=== PATIENT | female | born 1975 | race Caucasian/White ===

== ENCOUNTER 2018-10-30 01:10 | Inpatient (IN) ==
[2018-10-30 01:33] LABS: BE 11.5 mmoll (-3.0-3.0); BLOOD TYPE ARTERIAL; HCO3-(ACT) 33.7 mmoll (20.0-26.0); METHB 1.2 % (0.0-1.5); O2(CT) 17.2 mL/dL (15.0-23.0); PO2(98.6) 61 mmHg (60-100); SAMPLE BLOOD; SAO2 92.9 % (95.0-100.0); THB 13.7 g/dL (11.5-17.4); pH(98.6) 7.32 (7.35-7.45)
[2018-10-30 01:39] LABS: MODALITY CANNULA; O2HB 89.5 % (95.0-99.0); PCO2(98.6) 80 mmHg (35-45)
[2018-10-30 01:40] LABS: ALLEN TEST NO
[2018-10-30] MEDS ORDERED: LASIX IV ONE (01:55)
--- NOTE | 2018-10-30 02:06 | EKG Report ---
Test Performed on : 10/30/2018 01:17:28 AM Test Reason : SOB Blood Pressure : / mmHG Vent. Rate : 094 BPM Atrial Rate : 094 BPM P-R Int : 134 ms QRS Dur : 094 ms QT Int : 374 ms P-R-T Axes : 074 063 067 degrees QTc Int : 467 ms Normal sinus rhythm. Nonspecific ST abnormality Abnormal ECG No previous ECGs available Unconfirmed Result
[2018-10-30 02:20] LABS: BASO# 0.02 X1000 (0.0-0.2); BASO% 0.2 % (0.0-0.8); EOS# 0.28 X1000 (0.0-0.7); EOS% 2.3 % (0.0-10.0); HEMATOCRIT 45.1 % (37.0-47.0); HEMOGLOBIN 12.8 g/dL (12.0-16.0); IMM GRAN# 0.02 X1000 (0.0-0.04); IMM GRAN% 0.2 % (0.0-0.5); LYMPH# 1.91 X1000 (1.2-3.4); LYMPH% 15.8 % (20.5-51.1); MCHC 28.4 g/dL (33-37); MONO# 0.69 X1000 (0.11-0.59); MONO% 5.7 % (1.7-9.3); MPV 9.2 FL (7.4-10.4); NEUT# 9.16 X1000 (1.4-6.5); NEUT% 75.8 % (42.2-75.2); PLT 240 X1000 (130-400); RBC 4.42 XMIL (4.2-5.4); WBC 12.08 X1000 (4.8-10.8)
[2018-10-30 02:22] LABS: AGAP 9; ALBUMIN 3.5 g/dL (3.5-5.0); ALKALINE PHOSPHATASE 95 U/L (32-104); BUN 12 mg/dL (8-22); CALCIUM 8.5 mg/dL (8.8-10.2); CHLORIDE 97 mmol/L (98-107); CK PROFILE 56 U/L (24-173); COSMO 286; CREATININE 0.6 mg/dL (0.5-0.9); ESTIMATED GFR > 60; GLUCOSE 121 mg/dL (70-104); GOT 36 U/L (10-30); GPT 27 U/L (10-36); MAGNESIUM 2.1 mg/dL (1.5-2.7); POTASSIUM 4.2 mmol/L (3.5-5.1); SODIUM 143 mmol/L (136-145); TCO2 37 mmol/L (25-35); TOTAL PROTEIN 7.1 g/dL (6.3-8.3)
[2018-10-30 03:28] LABS: BILIRUBIN URINE NEGATIVE (NEGATIVE); BLOOD URINE NEGATIVE (NEGATIVE); CLARITY CLEAR (CLEAR); COLOR YELLOW; GLUCOSE URINE NEGATIVE (NEGATIVE); KETONE URINE TRACE mg/dL (NEGATIVE); LEUKOCYTES URINE TRACE (NEGATIVE); NITRITE URINE NEGATIVE (NEGATIVE); PROTEIN URINE TRACE mg/dL (NEGATIVE); SP GRAVITY URINE 1.015; UROBILINOGEN URINE 1 mg/dL
[2018-10-30 03:33] LABS: URINE EPITHELIAL CELLS <10 /HPF (<10); URINE RBC <10 /HPF (<10); URINE WBC <10 /HPF (<10)
[2018-10-30 03:34] LABS: URINE BACTERIA 1+ /HFP; URINE SOURCE CATH
[2018-10-30] MEDS ORDERED: TYLENOL PO ONE (03:43)
[2018-10-30 04:30] LABS: BE 14.3 mmoll (-3.0-3.0); BLOOD TYPE ARTERIAL; METHB 1.3 % (0.0-1.5); O2(CT) 18.4 mL/dL (15.0-23.0); O2HB 93.9 % (95.0-99.0); PO2(98.6) 84 mmHg (60-100); SAMPLE BLOOD; SAO2 97.5 % (95.0-100.0); THB 13.9 g/dL (11.5-17.4); pH(98.6) 7.34 (7.35-7.45)
[2018-10-30 04:38] LABS: ALLEN TEST NO; MODALITY BI PAP; PCO2(98.6) 82 mmHg (35-45)
--- NOTE | 2018-10-30 05:31 | PROVIDER DOCUMENTATION ---
This chart was entered by Niharika Ventura Scribe, acting as scribe for John Stone MD. HPI-Respiratory General - General Chief Complaint: Shortness of Breath Stated Complaint: ANXIETY ATTACK Time Seen by Provider: 10/30/18 01:43 Source: patient Allergies/Adverse Reactions: Patient Allergies Allergy/AdvReac Type Severity Reaction Status Date / Time No Known Allergies Allergy Verified 10/30/18 01:19 Home Medications: Home Medication List Medication Instructions Recorded Confirmed Last Taken Type Albuterol Sulfate [Ventolin Hfa] 18 gm IH Q4HR 10/30/18 10/30/18 Unknown History Allopurinol 200 mg PO BID 10/30/18 10/30/18 Unknown History Furosemide [Lasix] 40 mg PO BID 10/30/18 10/30/18 Unknown History Gabapentin 300 mg PO BID 10/30/18 10/30/18 Unknown History Levothyroxine [Synthroid] 200 microgm PO DAILY 10/30/18 10/30/18 Unknown History Potassium Chloride 10 meq PO DAILY 10/30/18 10/30/18 Unknown History Sertraline HCl 100 mg PO HS 10/30/18 10/30/18 Unknown History Sucralfate 1 gm PO DAILY 10/30/18 10/30/18 Unknown History - History of Present Illness-Resp Nature of Presenting Problem: Patient is a 43 year old female who presents to the ED via EMS with shortness of breath. Patient states shortness of breath has been present for 1 week and worsened. Patient denies fever and cough. Patient states she is on home O2 at 6 L. Patient states her O2 sat has been in the 80's all week. Quality of Pain: reports: tightness Severity in ED: reports: mild Onset/Duration: reports: other (1 week) Timing: reports: still present, getting worse Cough Quality/Degree: reports: no cough Current Respiratory Medication Therapy: Initiated see nurses note Modifying Factors: improves with: nothing Associated Symptoms: reports: shortness of breath Similar Symptoms Previously?: Yes Recently seen or treated by another doctor?: No Review of Systems - Adult - REVIEW OF SYSTEMS - ADULT Constitutional: reports: no symptoms reported Eyes: reports: no symptoms reported Ears, Nose, Mouth & Throat: reports: no symptoms reported Cardiovascular: reports: no symptoms reported Respiratory: reports: shortness of breath. denies: cough, wheezing Gastrointestinal: reports: no symptoms reported Genitourinary: reports: no symptoms reported Musculoskeletal: reports: no symptoms reported Integumentary: reports: no symptoms reported Neurological: reports: no symptoms reported Psychiatric: reports: no symptoms reported Endocrine: reports: no symptoms reported Hematologic/Lymphatic: reports: no symptoms reported Allergic/Immunologic: reports: no symptoms reported All Other Systems: Reviewed and Negative Past History - Adult - PAST MEDICAL HISTORY-ADULT Review of Records: reports: Nursing Assessment Review, Medications Reviewed, Social history reviewed & non-contributory. Major Childhood Illnesses: reports: denies history Cardiovascular: reports: CHF Respiratory: reports: sleep apnea Gastrointestinal: reports: denies history Obstetrical/Gynecological: reports: denies history Genitourinary: reports: denies history Musculoskeletal: reports: denies history Neurological: reports: denies history Psychiatric: reports: anxiety Endocrine/Immune: reports: thyroid disorder Other Conditions: reports: denies history - PRIOR SURGERIES/PROCEDURES Surgical/Procedure History: reports: reviewed, not pertinent - IMMUNIZATION STATUS Childhood Immunizations: See Nurse Assessment Flu Vaccine: See Nurse Assessment - FAMILY HISTORY Family History: reviewed, not pertinent - SOCIAL HISTORY Smoking: cigarettes (former) Substance Use: alcohol Alcohol Use Frequency: occasionally Living Situation: family Physical Exam-General - PHYSICAL EXAM-ADULT Initial Vital Signs Reviewed: Yes - CONSTITUTIONAL General Appearance: alert, no apparent distress, obese - EYES Eyes: PERRL/EOMI, pink conjunctivae - HEAD, EARS, NOSE, MOUTH & THROAT HENMT: normal ENT inspection - NECK Neck: normal inspection - RESPIRATORY Respiratory: chest non-tender, lungs clear, normal breath sounds - CARDIOVASCULAR Cardiovascular: normal peripheral pulses, regular rate, rhythm, no edema, no JVD , tachycardia. negative: friction rub - GASTROINTESTINAL (ABDOMEN) Abdominal Exam: normal bowel sounds, non tender, soft, other (2/4 PITTING EDEMA IN LATERAL DEPENDENT ASPECTS OF HER MASSIVE PANNICULUS) - MUSCULOSKELETAL Extremity: non-tender, normal inspection, no pedal edema, no calf tenderness. negative: pedal edema - SKIN Integumentary: normal color, normal turgor, warm/dry - NEUROLOGIC Neurologic: grossly normal - PSYCHIATRIC Psych/Mental Status: normal mood/affect, oriented x 3 Progress - PLAN OF CARE/RESULTS Progress/Plan/Lab Results: Vital Signs - 8 hr 10/30/18 01:11 10/30/18 02:01 Temperature 98.3 F Pulse Rate 95 H Respiratory Rate 20 Blood Pressure 110/78 O2 Sat by Pulse Oximetry 91 L 94 L Laboratory Results - last 24 hr 10/30/18 10/30/18 10/30/18 01:07 01:30 01:30 WBC 12.08 H RBC 4.42 Hgb 12.8 Hct 45.1 MCV 102.0 H MCH 29.0 MCHC 28.4 L RDW Std Deviation 14.0 Plt Count 240 MPV 9.2 Immature Gran % (Auto) 0.2 Neut % (Auto) 75.8 H Lymph % (Auto) 15.8 L [place] % (Auto) 5.7 Eos % (Auto) 2.3 Baso % (Auto) 0.2 Immature Gran # (Auto) 0.02 Neut # (Auto) 9.16 H Lymph # (Auto) 1.91 [place] # (Auto) 0.69 H Eos # (Auto) 0.28 Baso # (Auto) 0.02 Specimen Type ARTERIAL Sample Site R BRACHIAL pH 7.32 L pCO2 80 H* pO2 61 HCO3 33.7 H Base Excess 11.5 H Oxyhemoglobin 89.5 L* ABG O2 Sat (Calculated) 17.2 ABG O2 Saturation 92.9 L ABG Carboxyhemoglobin 2.50 ABG Methemoglobin 1.2 Isaias Test NO A-a O2 Difference 124.0 Total Hemoglobin 13.7 Lactate 1.30 Liter Flow 5.0 Blood Gas Modality CANNULA Vent Mode FiO2 % 40.0 Inspiratory BiPAP Expiratory BiPAP Sodium 143 Potassium 4.2 Chloride 97 L Carbon Dioxide 37 H Anion Gap 9 BUN 12 Creatinine 0.6 Estimated GFR/1.73 m2 > 60 BUN/Creatinine Ratio 20 Glucose 121 H Calculated Osmolality 286 Calcium 8.5 L Magnesium 2.1 Total Bilirubin 0.30 AST 36 H ALT 27 Alkaline Phosphatase 95 Ammonia Creatine Kinase 56 Troponin T [id number] Pept Total Protein 7.1 Albumin 3.5 Globulin 4.0 Albumin/Globulin Ratio 1.0 TSH Free T4 Urine Source Urine Color Urine Clarity Urine pH Ur Specific [place] Urine Protein Urine Ketones Urine Blood Urine Nitrite Urine Bilirubin Urine Urobilinogen Urine Microscopic RBC Urine WBC Urine Microscopic WBC Ur Epithelial Cells Urine Bacteria Urine Glucose 10/30/18 10/30/18 10/30/18 01:30 01:30 01:30 WBC RBC Hgb Hct MCV MCH MCHC RDW Std Deviation Plt Count MPV Immature Gran % (Auto) Neut % (Auto) Lymph % (Auto) [place] % (Auto) Eos % (Auto) Baso % (Auto) Immature Gran # (Auto) Neut # (Auto) Lymph # (Auto) [place] # (Auto) Eos # (Auto) Baso # (Auto) Specimen Type Sample Site pH pCO2 pO2 HCO3 Base Excess Oxyhemoglobin ABG O2 Sat (Calculated) ABG O2 Saturation ABG Carboxyhemoglobin ABG Methemoglobin Isaias Test A-a O2 Difference Total Hemoglobin Lactate Liter Flow Blood Gas Modality Vent Mode FiO2 % Inspiratory BiPAP Expiratory BiPAP Sodium Potassium Chloride Carbon Dioxide Anion Gap BUN Creatinine Estimated GFR/1.73 m2 BUN/Creatinine Ratio Glucose Calculated Osmolality Calcium Magnesium Total Bilirubin AST ALT Alkaline Phosphatase Ammonia Creatine Kinase Troponin T < 0.010 Anj-W-Ykmkktdnjhc Pept 88 Total Protein Albumin Globulin Albumin/Globulin Ratio TSH 21.80 H Free T4 Urine Source Urine Color Urine Clarity Urine pH Ur Specific [place] Urine Protein Urine Ketones Urine Blood Urine Nitrite Urine Bilirubin Urine Urobilinogen Urine Microscopic RBC Urine WBC Urine Microscopic WBC Ur Epithelial Cells Urine Bacteria Urine Glucose 10/30/18 10/30/18 10/30/18 01:30 01:40 02:35 WBC RBC Hgb Hct MCV MCH MCHC RDW Std Deviation Plt Count MPV Immature Gran % (Auto) Neut % (Auto) Lymph % (Auto) [place] % (Auto) Eos % (Auto) Baso % (Auto) Immature Gran # (Auto) Neut # (Auto) Lymph # (Auto) [place] # (Auto) Eos # (Auto) Baso # (Auto) Specimen Type Sample Site pH pCO2 pO2 HCO3 Base Excess Oxyhemoglobin ABG O2 Sat (Calculated) ABG O2 Saturation ABG Carboxyhemoglobin ABG Methemoglobin Isaias Test A-a O2 Difference Total Hemoglobin Lactate Liter Flow Blood Gas Modality Vent Mode FiO2 % Inspiratory BiPAP Expiratory BiPAP Sodium Potassium Chloride Carbon Dioxide Anion Gap BUN Creatinine Estimated GFR/1.73 m2 BUN/Creatinine Ratio Glucose Calculated Osmolality Calcium Magnesium Total Bilirubin AST ALT Alkaline Phosphatase Ammonia 32 Creatine Kinase Troponin T Qwk-C-Ueczvuhzmbu Pept Total Protein Albumin Globulin Albumin/Globulin Ratio TSH Free T4 0.90 L Urine Source CATH Urine Color YELLOW Urine Clarity CLEAR Urine pH 7.0 Ur Specific [place] 1.015 Urine Protein TRACE A Urine Ketones TRACE Urine Blood NEGATIVE Urine Nitrite NEGATIVE Urine Bilirubin NEGATIVE Urine Urobilinogen 1 Urine Microscopic RBC <10 Urine WBC TRACE A Urine Microscopic WBC <10 Ur Epithelial Cells <10 Urine Bacteria 1+ Urine Glucose NEGATIVE 10/30/18 04:04 WBC RBC Hgb Hct MCV MCH MCHC RDW Std Deviation Plt Count MPV Immature Gran % (Auto) Neut % (Auto) Lymph % (Auto) [place] % (Auto) Eos % (Auto) Baso % (Auto) Immature Gran # (Auto) Neut # (Auto) Lymph # (Auto) [place] # (Auto) Eos # (Auto) Baso # (Auto) Specimen Type ARTERIAL Sample Site R BRACHIAL pH 7.34 L pCO2 82 H* pO2 84 HCO3 36.0 H Base Excess 14.3 H Oxyhemoglobin 93.9 L ABG O2 Sat (Calculated) 18.4 ABG O2 Saturation 97.5 ABG Carboxyhemoglobin 2.30 ABG Methemoglobin 1.3 Isaias Test NO A-a O2 Difference 134.0 Total Hemoglobin 13.9 Lactate 1.30 Liter Flow Blood Gas Modality BI PAP Vent Mode BIPAP FiO2 % 45.0 Inspiratory BiPAP 16.0 Expiratory BiPAP 6.0 Sodium Potassium Chloride Carbon Dioxide Anion Gap BUN Creatinine Estimated GFR/1.73 m2 BUN/Creatinine Ratio Glucose Calculated Osmolality Calcium Magnesium Total Bilirubin AST ALT Alkaline Phosphatase Ammonia Creatine Kinase Troponin T Eyh-I-Yxrhpuqbenm Pept Total Protein Albumin Globulin Albumin/Globulin Ratio TSH Free T4 Urine Source Urine Color Urine Clarity Urine pH Ur Specific [place] Urine Protein Urine Ketones Urine Blood Urine Nitrite Urine Bilirubin Urine Urobilinogen Urine Microscopic RBC Urine WBC Urine Microscopic WBC Ur Epithelial Cells Urine Bacteria Urine Glucose Orders Category Date Time Status Grajeda Cath Insertion ORDERED Care 10/30/18 01:54 Active Saline Loc NOW Care 10/30/18 01:14 Active CHEST-1 VIEW [RAD] Stat Exams 10/30/18 01:15 Taken ABG [RESP] Routine Lab 10/30/18 01:07 Completed ABG [RESP] Routine Lab 10/30/18 04:04 Completed AMMONIA [CHEM] Stat Lab 10/30/18 01:40 Completed CBC WITH ELECTRONIC DIFF [HEME] Stat Lab 10/30/18 01:30 Completed CK PROFILE [SP CHEM] Stat Lab 10/30/18 01:30 Completed COMPREHENSIVE METABOLIC PANEL [CHEM] Stat Lab 10/30/18 01:30 Completed FREE T3 [HH] Stat Lab 10/30/18 01:30 Received FREE T4 Stat Lab 10/30/18 01:30 Completed MAGNESIUM [CHEM] Stat Lab 10/30/18 01:30 Completed PRO B-NATRIURETIC PEPTIDE Stat Lab 10/30/18 01:30 Completed TROPONIN T Stat Lab 10/30/18 01:30 Completed TSH Stat Lab 10/30/18 01:30 Completed URINE CULTURE [RM] Routine Lab 10/30/18 03:35 Ordered ua [URINALYSIS PL W/POSS RFLX CULT] [URINALYSIS] Stat Lab 10/30/18 02:35 Completed Acetaminophen [Tylenol] Med 10/30/18 03:43 Discontinued 650 mg PO NOW ONE Furosemide [Lasix] Med 10/30/18 01:55 Discontinued 80 mg IV NOW ONE BIPAP Stat Oth 10/30/18 02:00 Active EKG [EKG] Stat Ther 10/30/18 01:14 Draft Result Diagrams: 10/30/18 01:30 10/30/18 01:30 - EKG 1 Time of EKG reading by physician:: 01:17 EKG Read and Signed by:: John Stone EKG Interpretation (*Must complete 3 of following elements*): Abnormal Rate: 94 Rhythm: normal sinus rhythm Comments: nonspecific ST abnormality - XRAY 1 XRAY Study: Chest Impression: Abnormal (PULMONARY EDEMA W/O CARDIOMEGALLY, DEXTROCARDIA) - CONSULTS/PCP/HOSPITALIST Notification #1 *Consult/PCP/Hospitalist*: PENOT Time Discussed: 05:20 Consult Disposition: Admit Departure - Departure Date of Disposition Decision: 10/30/18 Time of Disposition Decision: 05:22 DIAGNOSIS: Dyspnea and respiratory abnormality, Acute exacerbation of CHF (congestive heart failure), Pulmonary edema, Hypercapnia, Morbid obesity Disposition: ADMITTED INPATIENT 09 Certified Medical Emergency: Emergent Condition: Fair Referrals and Follow-Ups: UNKNOWN, [Primary Care Provider] - - Critical Care Note This patient required my direct & personal management of CC.: Yes Total Time (mins): 55 Critical Care Statement: This patient required my direct personal management to treat or rule out processes, the absence of which, could potentiallly result in sudden, clinically significant life or limb threatening deterioration. Attestation - Physician/ KAROLINA Attestation Patient care was provided by Advanced Practice Provider:: No The physician spent face to face time with patient:: Yes Advanced Practice Provider documentation review:: Supervising physician onsite and consulted in the evaluation and care of this patient. The physician did have a face to face encounter with the patient. This chart was documented by the indicated scribe, (Niharika Ventura Scribe) and accurately reflects the services I performed and decisions made by me, John Stone MD, as attested by the provider's signature.
--- NOTE | 2018-10-30 07:31 | Diag Imaging Result Doc PS360 ---
EXAM: CHEST-1 VIEW HISTORY: SOB TECHNIQUE: Chest single view COMPARISON: None. FINDINGS: Poor inspiratory effort. The patient is rotated to the right. The heart is not enlarged. The vessels are not distended. Questionable small basilar infiltrates or atelectasis. No effusion identified. IMPRESSION: Questionable small basilar infiltrates. Follow-up PA and lateral recommended. Electronically signed by Jacky Faust 10/30/2018 7:29 AM
[2018-10-30] MEDS ORDERED: SYNTHROID PO ONE ×3 (11:29→11:45)
[2018-10-30 12:27] LABS: BE 16.5 mmoll (-3.0-3.0); BLOOD TYPE ARTERIAL; HCO3-(ACT) 37.7 mmoll (20.0-26.0); METHB 1.3 % (0.0-1.5); O2(CT) 17.6 mL/dL (15.0-23.0); O2HB 92.4 % (95.0-99.0); PO2(98.6) 69 mmHg (60-100); SAMPLE BLOOD; SAO2 95.8 % (95.0-100.0); THB 13.5 g/dL (11.5-17.4); pH(98.6) 7.39 (7.35-7.45)
[2018-10-30 12:31] LABS: PCO2(98.6) 75 mmHg (35-45)
[2018-10-30 12:32] LABS: ALLEN TEST YES; MODALITY CANNULA
[2018-10-30] MEDS: KLOR-CON PO SCH (12:44)
[2018-10-30] MEDS: ZITHROMAX 500 MG/NS 500 MG/250 ML IVPB IV SCH (12:44)
[2018-10-30] MEDS: ROCEPHIN 1 GM in NS 50 ML IV SCH (12:46)
[2018-10-30] MEDS ORDERED: PNEUMOVAX 23 IM ONE (13:01)
[2018-10-30] MEDS: SYNTHROID PO SCH (14:02)
--- NOTE | 2018-10-30 14:12 | HISTORY AND PHYSICAL ---
CHIEF COMPLAINT: Shortness of breath x1 week that progressively worsened despite using her home O2 and BiPAP. HISTORY OF PRESENT ILLNESS: This is a 43-year-old female who presented to [facility] ER via EMS with complaints of shortness of breath that has progressively worsened over the past week. States that she is on home O2 at 6 L via nasal cannula, and that she also does BiPAP at night, and despite those things and her breathing treatments, she continued to feel short of breath and even had some O2 sats in the 80s at home. When she arrived to the emergency room, she had an O2 saturation of 91% on her nasal cannula. Her white blood cell count was 12.08. Her first ABG showed a pH of 7.32, pCO2 of 80, PO2 of 61, bicarb 33.7. She was then placed on BiPAP. Her TSH level was elevated at 21.80 with a free T4 of 0.90 she reports that she has not been taking her 200 mcg daily of Synthroid as prescribed. States she has only been taking it daily for the past week. Her chest x-ray showed a questionable small basilar infiltrate, with a followup PA and lateral recommended, so she is being admitted for further evaluation and treatment. PAST MEDICAL HISTORY: CHF, sleep apnea, anxiety, and hypothyroidism. PAST SURGICAL HISTORY: None. FAMILY HISTORY: None. SOCIAL HISTORY: She currently lives with family. Denies any tobacco, alcohol, or illicit drug use. ALLERGIES: She has no known drug allergies. HOME MEDICATIONS: 1. We will hold her Ventolin inhaler every 4 hours. 2. Will continue her allopurinol 200 mg p.o. b.i.d. 3. Lasix 40 mg p.o. b.i.d. 4. Gabapentin 300 mg p.o. b.i.d. 5. Synthroid 200 mcg p.o. daily. 6. Potassium 10 mEq p.o. daily. 7. Sertraline 100 mg p.o. at bedtime. 8. Sucralfate 1 gram p.o. daily. IMAGING AND LABORATORY DATA: Laboratory data showed a white blood cell count of 12.08, a hemoglobin of 12.8, hematocrit 45.1, platelets 240,000. ABG on arrival with a pH of 7.32, pCO2 of 80, PO2 of 61, bicarb 33.7 on 40% cannula. Repeat at noon today showed a pH of 7.39, pCO2 of 75, PO2 of 69, bicarb 37.7, and this was after being taken off her BiPAP at 36% nasal cannula. Sodium 143, potassium 4.2, chloride 97, CO2 of 37, BUN of 12, creatinine 0.6, glucose of 121. Magnesium 2.1. TSH of 21.80, free T4 of 0.90. Ammonia of 32. Cardiac enzyme was negative. ProBNP of 88. Urinalysis was negative. Chest x-ray showed questionable small basilar infiltrates. Followup PA and lateral was recommended. EKG showed normal sinus rhythm at 94. REVIEW OF SYSTEMS: She denied any fever, chills, blurred vision, dizziness, chest pain. She has had a nonproductive cough, shortness of breath. Denied any abdominal pain, constipation, diarrhea, burning or hurting with urination. PHYSICAL EXAMINATION: VITAL SIGNS: On arrival, she had a temperature of 98.3 degrees, a pulse of 95, respirations 20, blood pressure 110/78, saturating 91% on nasal cannula, currently saturating 99% on 4 L via nasal cannula. GENERAL: This is a 43-year-old, morbidly obese, female, who is lying in the bed and answers questions appropriately. HEENT: Normocephalic, atraumatic. Normal ENT inspection. Oropharynx and nares are clear. Eyes: Pupils are equal, round, reactive to light and accommodation. Extraocular movements are intact. NECK: Normal inspection. Normal range of motion. LUNGS: Decreased breath sounds bilaterally throughout posterior lung heredia. Equal lung expansion. Chest wall movement is noted. O2 via nasal cannula currently in use. HEART: Regular rate and rhythm. No murmurs, rubs, or gallops. ABDOMEN: Soft, nontender, nondistended. Bowel sounds are present x4 quadrants. MUSCULOSKELETAL: She has 5/5 strength x4 extremities. NEUROLOGICAL: Cranial nerves II through XII appear grossly intact. ASSESSMENT: 1. Questionable basilar infiltrates bilaterally. 2. Acute respiratory failure with hypercapnia. 3. Hypothyroidism. 4. Medical noncompliance. PLAN: She has been admitted to the medical unit, placed on O2 per protocol, placed on a healthy heart diet. Will continue her home medications as previously identified. Place on Rocephin 1 gram IV every 24 hours, and azithromycin 500 mg IV every 24 hours, DuoNeb every 4 hours routinely. Recheck CBC, BMP in the a.m. We are checking a free T4. That is a send out, so we are waiting on those results, and her urine culture is pending. Dictated by VIVIAN Maldonado for Will Guzman MD cc: VIVIAN Maldonado MD
[2018-10-30] MEDS: DUONEB (A & A) INH SCH ×3 (14:52→23:03)
[2018-10-30] MEDS ORDERED: IMODIUM PO PRN (17:03)
[2018-10-30] MEDS ORDERED: ZOFRAN IV PRN (17:05)
[2018-10-30] MEDS: LASIX IV SCH (19:23)
[2018-10-30] MEDS ORDERED: LASIX PO SCH (21:00)
[2018-10-30] MEDS: ZYLOPRIM PO SCH (21:11)
[2018-10-30] MEDS: NEURONTIN PO SCH (21:11)
[2018-10-30] MEDS: ZOLOFT PO SCH (21:11)
[2018-10-30] MEDS: TYLENOL PO PRN (23:12)
--- NOTE | 2018-10-31 01:17 | PROGRESS NOTE ---
DATE: 10/30/2018 The patient has developed shortness of breath and cough. She came in with shortness of breath. She has a heart failure history. She has many issues with that previously. Workup in the ER revealed CHF versus possible pneumonia, and she was admitted for treatment. On exam, she has some rales at the bases, some wheezing. X-ray was interpreted as questionable small basilar infiltrate, and it was a portable chest x-ray. She does have possibly some dextrocardia, but I am not entirely sure if that is just not the nature of the film. We will send her down for a 2-view film. Continue diuretics. She is empirically on antibiotics. We will see how she does. She has also been noncompliant with her thyroid, and she has some degree of thyrotoxicosis as well. We will continue her Synthroid, but she is on a pretty decent dose of Synthroid, but we will continue to follow. Her Synthroid is been bumped up to 200 daily. Continue to follow. cc: Will Guzman MD
[2018-10-31] MEDS: DUONEB (A & A) INH SCH ×6 (02:53→23:01)
[2018-10-31] MEDS: LASIX IV SCH (04:06)
[2018-10-31] MEDS: SYNTHROID PO SCH ×2 (05:07→06:01)
[2018-10-31] MEDS: LOVENOX SUBQ SCH (05:07)
[2018-10-31] MEDS: TYLENOL PO PRN ×2 (05:56→18:17)
[2018-10-31 06:29] LABS: BASO# 0.02 X1000 (0.0-0.2); BASO% 0.2 % (0.0-0.8); EOS# 0.32 X1000 (0.0-0.7); EOS% 2.8 % (0.0-10.0); HEMOGLOBIN 12.8 g/dL (12.0-16.0); IMM GRAN# 0.02 X1000 (0.0-0.04); IMM GRAN% 0.2 % (0.0-0.5); LYMPH# 3.01 X1000 (1.2-3.4); LYMPH% 26.7 % (20.5-51.1); MCH 28.8 PG (27-31); MCHC 28.4 g/dL (33-37); MCV 101.4 FL (81-99); MONO# 0.66 X1000 (0.11-0.59); MONO% 5.9 % (1.7-9.3); MPV 9.6 FL (7.4-10.4); NEUT# 7.25 X1000 (1.4-6.5); NEUT% 64.2 % (42.2-75.2); PLT 230 X1000 (130-400); RBC 4.44 XMIL (4.2-5.4); WBC 11.28 X1000 (4.8-10.8)
[2018-10-31 06:49] LABS: ESTIMATED GFR > 60
[2018-10-31 06:50] LABS: AGAP 9; BUN 14 mg/dL (8-22); CALCIUM 8.6 mg/dL (8.8-10.2); CHLORIDE 91 mmol/L (98-107); COSMO 279; CREATININE 0.7 mg/dL (0.5-0.9); GLUCOSE 91 mg/dL (70-104); POTASSIUM 3.9 mmol/L (3.5-5.1); SEGS 65 % (42-75); SODIUM 140 mmol/L (136-145); TCO2 40 mmol/L (25-35)
[2018-10-31 06:51] LABS: EOS 2 % (1-10); LYMPHS 25 % (21-51); MONO 8 % (1-9)
[2018-10-31] MEDS: CARAFATE PO SCH (08:21)
[2018-10-31] MEDS: KLOR-CON PO SCH (08:21)
[2018-10-31] MEDS: ZYLOPRIM PO SCH ×2 (08:21→20:03)
[2018-10-31] MEDS: NEURONTIN PO SCH ×2 (08:22→20:04)
[2018-10-31] MEDS: ROCEPHIN 1 GM in NS 50 ML IV SCH (11:34)
[2018-10-31] MEDS: ZITHROMAX 500 MG/NS 500 MG/250 ML IVPB IV SCH (11:44)
--- NOTE | 2018-10-31 12:06 | Diag Imaging Result Doc PS360 ---
EXAM: CHEST-PORTABLE HISTORY: dyspnea TECHNIQUE: Portable chest single view COMPARISON: 10/30/2018 FINDINGS: The lungs are well expanded except for minimal atelectasis in the right base. The heart is not enlarged. Minimal central vascular distention. There are no infiltrates. No effusion identified. IMPRESSION: Right basilar atelectasis. Electronically signed by Jacky Faust 10/31/2018 12:04 PM
--- NOTE | 2018-10-31 14:32 | ECHO REPORT ---
ORDER DATE: 10/31/2018 INTERPRETING PHYSICIAN: Dr. Brady Carl. LIMITED TWO DIMENSIONAL ECHOCARDIOGRAM WITH DEFINITY: Technically suboptimal study. Very poor. Parasternal windows measurements could not be accurately obtained. SUMMARY OF THE 2-DIMENSIONAL IMAGIN. Definity was used to assess left ventricular systolic function. 2. Aortic valve leaflets not well visualized. Mitral valve was normal. Tricuspid valve was normal. Pulmonic valve not visualized. 3. Peak velocity across the aortic valve less than 2 m/sec. By Doppler studies, there is no aortic stenosis or regurgitation. There is trace tricuspid regurgitation, trace mitral regurgitation. 4. Normal left ventricular cavity size. Estimated ejection fraction of 55%. 5. There is no pericardial effusion. cc: MD Will Pratt MD
--- NOTE | 2018-10-31 14:46 | PROGRESS NOTE ---
DATE: 10/31/2018 SUBJECTIVE: The patient has no major complaints except cramping and she feels diffusely tired. OBJECTIVE: Blood pressure is 110/70, heart rate of 73, respiratory rate of 20, temperature 98.2, 92% on 4 L.Cardiovascular: Regular rate and rhythm. Pulmonary: Bilateral breath sounds clear to auscultation. Gastrointestinal: Soft, nontender, nondistended. Bowel sounds are positive. LABORATORY DATA: White count 11, hemoglobin and hematocrit 12 and 45, platelets 230,000. BUN and creatinine are 14 and 0.7. PROBLEM LIST: 1. Congestive heart failure exacerbation, mild. I think she seems to be doing okay. We will switch her back to oral Lasix because she feels like she is a bit on the dry side. 2. Right lower lobe pneumonia. She is on breathing treatments, antibiotics, pulmonary toilet. We will continue to monitor closely. 3. Acute respiratory failure, hypercapnic, hypoxic. She seems to be stabilizing on her BiPAP. 4. Hypothyroidism with noncompliance. We have got her on an increased dose of Synthroid. 5. That being said, I could describe thyrotoxicosis. She is not thyrotoxic because she is hypothyroid, but I do think it is contributing to her other issues. DISPOSITION: Anticipate hopeful discharge next 1 to 2 days. We will continue to monitor closely. cc: Will Guzman MD
[2018-10-31] MEDS: ZOLOFT PO SCH (20:04)
[2018-10-31] MEDS: LASIX PO SCH (20:04)
[2018-11-01] MEDS: DUONEB (A & A) INH SCH ×6 (02:29→22:38)
[2018-11-01 06:05] LABS: BASO# 0.02 X1000 (0.0-0.2); BASO% 0.2 % (0.0-0.8); EOS% 2.6 % (0.0-10.0); HEMOGLOBIN 12.1 g/dL (12.0-16.0); IMM GRAN# 0.04 X1000 (0.0-0.04); IMM GRAN% 0.4 % (0.0-0.5); LYMPH# 2.49 X1000 (1.2-3.4); LYMPH% 21.8 % (20.5-51.1); MCH 29.1 PG (27-31); MCHC 28.8 g/dL (33-37); MONO# 0.77 X1000 (0.11-0.59); MONO% 6.7 % (1.7-9.3); MPV 9.4 FL (7.4-10.4); NEUT# 7.79 X1000 (1.4-6.5); NEUT% 68.3 % (42.2-75.2); PLT 216 X1000 (130-400); RBC 4.16 XMIL (4.2-5.4); WBC 11.41 X1000 (4.8-10.8)
[2018-11-01 06:20] LABS: AGAP 7; BUN 15 mg/dL (8-22); CALCIUM 8.3 mg/dL (8.8-10.2); CHLORIDE 93 mmol/L (98-107); COSMO 279; CREATININE 0.8 mg/dL (0.5-0.9); ESTIMATED GFR > 60; GLUCOSE 115 mg/dL (70-104); MAGNESIUM 2.1 mg/dL (1.5-2.7); POTASSIUM 3.4 mmol/L (3.5-5.1); SODIUM 139 mmol/L (136-145); TCO2 39 mmol/L (25-35)
[2018-11-01] MEDS: SYNTHROID PO SCH (06:46)
[2018-11-01] MEDS: LOVENOX SUBQ SCH (06:47)
[2018-11-01] MEDS: NEURONTIN PO SCH ×2 (10:06→20:32)
[2018-11-01] MEDS: CARAFATE PO SCH (10:06)
[2018-11-01] MEDS: ZYLOPRIM PO SCH ×2 (10:07→20:32)
[2018-11-01] MEDS: KLOR-CON PO SCH (10:07)
[2018-11-01] MEDS: LASIX PO SCH ×2 (10:07→20:32)
[2018-11-01] MEDS: ROCEPHIN 1 GM in NS 50 ML IV SCH (11:31)
[2018-11-01] MEDS: ZITHROMAX 500 MG/NS 500 MG/250 ML IVPB IV SCH (11:33)
[2018-11-01] MEDS: ZOLOFT PO SCH (20:32)
--- NOTE | 2018-11-01 21:10 | PROGRESS NOTE ---
DATE: 11/01/2018 SUBJECTIVE: Patient has no focal complaints. OBJECTIVE: Blood pressure is 117/55, heart rate of 82, respiratory rate 20, temperature 97.4 degrees, 95% on 4 L.Cardiovascular: Regular rate and rhythm. Pulmonary: Bilateral breath sounds, clear to auscultation. GI: Was soft, nontender, nondistended, bowel sounds are positive. Extremities: No clubbing or cyanosis. Lymphatic: Decreased peripheral edema. LABORATORY DATA: White count 11, hemoglobin and hematocrit 12 and 42, platelets 216,000, potassium is 3.4. PROBLEM LIST: 1. Congestive heart failure exacerbation, she seems to be doing better from that standpoint. She is on her regular medications. Her echocardiogram showed an ejection fraction of 55% so she actually does not have really bad this could just be related to severe obesity. 2. Pneumonia, she is on antibiotics, I think she is doing better from that standpoint. 3. Acute hypercapnic respiratory failure, she is stable on her BiPAP. 4. Hypothyroidism, will continue Synthroid. 5. Disposition. Apparently there is social situations. We are working on possible rehab options for her. We will continue to follow. cc: Will Guzman MD
[2018-11-02] MEDS: TYLENOL PO PRN (02:51)
[2018-11-02] MEDS: DUONEB (A & A) INH SCH ×6 (03:32→23:05)
[2018-11-02] MEDS: SYNTHROID PO SCH (06:23)
[2018-11-02] MEDS: LOVENOX SUBQ SCH (06:23)
[2018-11-02 07:17] LABS: AGAP 8; BUN 15 mg/dL (8-22); CALCIUM 8.2 mg/dL (8.8-10.2); CHLORIDE 97 mmol/L (98-107); COSMO 280; CREATININE 0.6 mg/dL (0.5-0.9); ESTIMATED GFR > 60; GLUCOSE 96 mg/dL (70-104); MAGNESIUM 2.2 mg/dL (1.5-2.7); POTASSIUM 3.8 mmol/L (3.5-5.1); SODIUM 140 mmol/L (136-145); TCO2 35 mmol/L (25-35)
[2018-11-02 07:22] LABS: BASO# 0.01 X1000 (0.0-0.2); BASO% 0.1 % (0.0-0.8); EOS% 3.5 % (0.0-10.0); HEMATOCRIT 42.2 % (37.0-47.0); HEMOGLOBIN 11.9 g/dL (12.0-16.0); IMM GRAN# 0.02 X1000 (0.0-0.04); IMM GRAN% 0.2 % (0.0-0.5); LYMPH# 2.88 X1000 (1.2-3.4); LYMPH% 25.2 % (20.5-51.1); MCH 28.5 PG (27-31); MCHC 28.2 g/dL (33-37); MCV 101.2 FL (81-99); MONO% 7.9 % (1.7-9.3); MPV 9.3 FL (7.4-10.4); NEUT# 7.22 X1000 (1.4-6.5); NEUT% 63.1 % (42.2-75.2); PLT 212 X1000 (130-400); RBC 4.17 XMIL (4.2-5.4); RDW 13.9 % (11.5-14.5); WBC 11.43 X1000 (4.8-10.8)
[2018-11-02] MEDS: KLOR-CON PO SCH (08:56)
[2018-11-02] MEDS: CARAFATE PO SCH (08:56)
[2018-11-02] MEDS: NEURONTIN PO SCH ×2 (08:56→21:31)
[2018-11-02] MEDS: ZYLOPRIM PO SCH ×2 (08:56→21:31)
[2018-11-02] MEDS: ZITHROMAX PO SCH (08:56)
[2018-11-02] MEDS: LASIX PO SCH ×2 (08:56→21:31)
[2018-11-02] MEDS: ROCEPHIN 1 GM in NS 50 ML IV SCH (12:45)
[2018-11-02] MEDS: MAXIPIME 2 GM in NS 100 ML IV SCH (18:10)
--- NOTE | 2018-11-02 18:34 | PROGRESS NOTE ---
DATE: 11/02/2018 SUBJECTIVE: Patient has no major complaints. OBJECTIVE: Blood pressure is 108/47, heart rate 82, respiratory rate 20, temperature 98 .4, 90-93 percent on 4 L.Cardiovascular: Regular rate and rhythm. Pulmonary: Bilateral breath sounds. Clear to auscultation. GI: Soft, nontender, nondistended. Bowel sounds are positive. LABORATORY DATA: White count 11, hemoglobin and hematocrit 11, 42, platelets 212,000, basic was normal. PROBLEM LIST: 1. Right basilar pneumonia, she is on Rocephin. I am going to bump her up to cefepime because she still has a little bit of a white count. This may be a gram-negative type pneumonia. 2. Congestive heart failure exacerbation, she is on Lasix. 3. Dysuria, will repeat her UA and do a bladder scan and follow. 4. Morbid obesity. She is basically bed bound or at least she cannot ambulate. 5. Hypothyroidism. She has been subtherapeutic but that is due to compliance although now I think she does take her medications fairly regularly well. We are going to encourage to take them regularly. 6. Disposition, I anticipate she will be safe for discharge on Sunday once bed has been stabilized. cc: Will Guzman MD
[2018-11-02] MEDS: ZOLOFT PO SCH (21:31)
[2018-11-03] MEDS ORDERED: HALL'S COUGH LOZENGE MT PRN (00:31)
[2018-11-03 00:52] LABS: URINE SOURCE CLEAN CATCH
[2018-11-03 01:05] LABS: BILIRUBIN URINE NEGATIVE (NEGATIVE); BLOOD URINE 4+ (NEGATIVE); CLARITY CLEAR (CLEAR); COLOR YELLOW; GLUCOSE URINE NEGATIVE (NEGATIVE); KETONE URINE NEGATIVE (NEGATIVE); LEUKOCYTES URINE NEGATIVE (NEGATIVE); NITRITE URINE NEGATIVE (NEGATIVE); PH URINE 6.5; PROTEIN URINE NEGATIVE (NEGATIVE); UROBILINOGEN URINE NORMAL
[2018-11-03 01:06] LABS: URINE BACTERIA 2+ /HFP; URINE EPITHELIAL CELLS <10 /HPF (<10); URINE RBC TNTC /HPF (<10); URINE WBC <10 /HPF (<10)
[2018-11-03] MEDS: DUONEB (A & A) INH SCH ×6 (03:13→22:48)
[2018-11-03] MEDS: MAXIPIME 2 GM in NS 100 ML IV SCH ×2 (04:52→18:23)
[2018-11-03] MEDS: LOVENOX SUBQ SCH ×3 (04:53→06:41)
[2018-11-03] MEDS: SYNTHROID PO SCH ×2 (04:53→06:42)
[2018-11-03 07:04] LABS: BASO# 0.01 X1000 (0.0-0.2); BASO% 0.1 % (0.0-0.8); EOS# 0.39 X1000 (0.0-0.7); EOS% 3.2 % (0.0-10.0); HEMATOCRIT 43.9 % (37.0-47.0); HEMOGLOBIN 12.6 g/dL (12.0-16.0); IMM GRAN# 0.05 X1000 (0.0-0.04); IMM GRAN% 0.4 % (0.0-0.5); LYMPH# 2.46 X1000 (1.2-3.4); LYMPH% 20.3 % (20.5-51.1); MCHC 28.7 g/dL (33-37); MCV 101.2 FL (81-99); MONO# 0.81 X1000 (0.11-0.59); MONO% 6.7 % (1.7-9.3); MPV 9.6 FL (7.4-10.4); NEUT# 8.39 X1000 (1.4-6.5); NEUT% 69.3 % (42.2-75.2); PLT 226 X1000 (130-400); RBC 4.34 XMIL (4.2-5.4); RDW 14.1 % (11.5-14.5); WBC 12.11 X1000 (4.8-10.8)
[2018-11-03 07:28] LABS: AGAP 11; BUN 17 mg/dL (8-22); CALCIUM 8.2 mg/dL (8.8-10.2); CHLORIDE 97 mmol/L (98-107); COSMO 287; CREATININE 0.7 mg/dL (0.5-0.9); ESTIMATED GFR > 60; GLUCOSE 100 mg/dL (70-104); SODIUM 143 mmol/L (136-145); TCO2 35 mmol/L (25-35)
[2018-11-03] MEDS: ZITHROMAX PO SCH (08:48)
[2018-11-03] MEDS: KLOR-CON PO SCH (08:48)
[2018-11-03] MEDS: LASIX PO SCH ×2 (08:48→20:27)
[2018-11-03] MEDS: CARAFATE PO SCH (08:48)
[2018-11-03] MEDS: ZYLOPRIM PO SCH ×2 (08:48→20:27)
[2018-11-03] MEDS: NEURONTIN PO SCH ×2 (08:48→20:27)
[2018-11-03] MEDS ORDERED: XYLOCAINE 2% JELLY TOP ONE (11:28)
[2018-11-03] MEDS: MBX SOLUTION MT PRN (11:47)
--- NOTE | 2018-11-03 12:03 | PROGRESS NOTE ---
DATE: 11/03/2018 SUBJECTIVE: The patient has no focal complaints. OBJECTIVE: Vital signs: Blood pressure is 114/55, heart rate 65, respiratory rate 18, temperature 97.5, saturation 94% on 4 L. Cardiovascular: Regular rate and rhythm. Pulmonary: Bilateral breath sounds. Clear to auscultation. GI: Soft, nontender, nondistended. Bowel sounds are positive. Extremity: No clubbing or cyanosis. Lymphatics: No peripheral edema. LABORATORY DATA: Her white count is still up a bit at 12, hemoglobin and hematocrit 12 and 43, platelets 226,000. Basic was normal. PROBLEMS: 1. Right basilar pneumonia. We will repeat her chest x-ray. This is likely a [id number] pneumonia since she is frequently in the hospital or associated with health care. Fortunately she cannot go down for two-view because she cannot sit up. She is too obese to be able sit up. We have tried that previously and she was not able tolerate a 2 view x-ray, so we will get a portable. 2. Congestive heart failure exacerbation. She is on Lasix. We will continue to follow. 3. Dysuria. She is retaining urine. She just cannot urinate. I think we are going to have to replace her Grajeda. 4. Hypothyroidism. Continue treatment and follow closely. 5. Disposition is stable. Continue to follow closely. Plan for rehab transfer when stable. cc: Will Guzman MD
[2018-11-03] MEDS ORDERED: CALMOSEPTINE OINTMENT TOP PRN (12:34)
--- NOTE | 2018-11-03 16:48 | Diag Imaging Result Doc PS360 ---
EXAM: CHEST-PORTABLE 11/03/2018 HISTORY: dyspnea TECHNIQUE: AP portable at 1615 COMMENT: There is subsegmental atelectasis in the right lower lobe which was also present on 10/31/2018. Overall there has been no significant change since the previous study. IMPRESSION: Right lower lobe atelectasis. Electronically signed by Ankur Gutierrez 11/03/2018 4:46 PM
[2018-11-03] MEDS: ZOLOFT PO SCH (20:27)
[2018-11-04] MEDS: DUONEB (A & A) INH SCH ×6 (03:08→23:14)
[2018-11-04 05:41] LABS: BASO# 0.02 X1000 (0.0-0.2); BASO% 0.2 % (0.0-0.8); EOS# 0.43 X1000 (0.0-0.7); EOS% 3.8 % (0.0-10.0); HEMATOCRIT 42.1 % (37.0-47.0); HEMOGLOBIN 11.8 g/dL (12.0-16.0); IMM GRAN# 0.04 X1000 (0.0-0.04); IMM GRAN% 0.4 % (0.0-0.5); LYMPH# 2.25 X1000 (1.2-3.4); LYMPH% 20.1 % (20.5-51.1); MCH 28.5 PG (27-31); MCV 101.7 FL (81-99); MONO# 0.69 X1000 (0.11-0.59); MONO% 6.2 % (1.7-9.3); MPV 9.3 FL (7.4-10.4); NEUT# 7.75 X1000 (1.4-6.5); NEUT% 69.3 % (42.2-75.2); PLT 218 X1000 (130-400); RBC 4.14 XMIL (4.2-5.4); RDW 13.9 % (11.5-14.5); WBC 11.18 X1000 (4.8-10.8)
[2018-11-04 05:46] LABS: AGAP 9; BUN 15 mg/dL (8-22); CALCIUM 8.4 mg/dL (8.8-10.2); CHLORIDE 92 mmol/L (98-107); COSMO 280; CREATININE 0.8 mg/dL (0.5-0.9); ESTIMATED GFR > 60; GLUCOSE 162 mg/dL (70-104); POTASSIUM 3.3 mmol/L (3.5-5.1); SODIUM 138 mmol/L (136-145); TCO2 37 mmol/L (25-35)
[2018-11-04] MEDS: LOVENOX SUBQ SCH (06:11)
[2018-11-04] MEDS: MAXIPIME 2 GM in NS 100 ML IV SCH ×2 (06:11→17:41)
[2018-11-04] MEDS: SYNTHROID PO SCH ×2 (06:11→08:14)
[2018-11-04] MEDS ORDERED: SYNTHROID PO SCH (07:00)
--- NOTE | 2018-11-04 07:26 | Diag Imaging Result Doc PS360 ---
EXAM: CHEST-PORTABLE HISTORY: hypoxia TECHNIQUE: Portable chest single view COMPARISON: 11/03/2018 FINDINGS: Poor inspiratory effort. There is atelectasis versus a small infiltrate in the right lung base and there appears to be a small right pleural effusion. No cardiomegaly. The left lung is clear. IMPRESSION: Stable chest. Electronically signed by Jacky Faust 11/04/2018 7:23 AM
[2018-11-04] MEDS: KLOR-CON PO SCH (08:08)
[2018-11-04] MEDS: NEURONTIN PO SCH ×2 (08:08→21:14)
[2018-11-04] MEDS: ZITHROMAX PO SCH (08:08)
[2018-11-04] MEDS: LASIX PO SCH ×2 (08:09→21:14)
[2018-11-04] MEDS: ZYLOPRIM PO SCH ×2 (08:09→21:14)
[2018-11-04] MEDS: CARAFATE PO SCH (08:09)
[2018-11-04] MEDS: MBX SOLUTION MT PRN ×2 (08:15→15:28)
[2018-11-04] MEDS: DIFLUCAN PO SCH (11:14)
[2018-11-04] MEDS ORDERED: MAXIPIME ONE (17:48)
[2018-11-04] MEDS: ZOLOFT PO SCH (21:14)
--- NOTE | 2018-11-04 21:45 | PROGRESS NOTE ---
DATE: 11/04/2018 SUBJECTIVE: Patient has no new complaints states however she has not been [*]. PHYSICAL: Temperature 98.3, pulse 77, respiratory 20, BP 122/48.General: Patient is awake, alert, she is in no current respiratory distress. HEENT: Normocephalic. Neck: Supple. CV: Regular rate. Chest: Clear nonlabored, no crackles. Extremities: No focal changes. ASSESSMENT: 1. Right basilar pneumonia . 2. Congestive heart failure, systolic exacerbation . 3. Dysuria. 4. Hypothyroidism, her TSH is still elevated, we will increase her Synthroid to [*]continue azithromycin, continue Lasix and will follow. Hopefully home soon. cc: Robin Kruger MD
[2018-11-05] MEDS: DUONEB (A & A) INH SCH ×6 (03:10→23:10)
[2018-11-05] MEDS: MAXIPIME 2 GM in NS 100 ML IV SCH ×2 (05:50→17:37)
[2018-11-05] MEDS: LOVENOX SUBQ SCH (05:52)
[2018-11-05] MEDS: SYNTHROID PO SCH ×4 (05:52→06:41)
[2018-11-05] MEDS: DIFLUCAN PO SCH (09:56)
[2018-11-05] MEDS: NEURONTIN PO SCH ×2 (09:56→20:34)
[2018-11-05] MEDS: CARAFATE PO SCH (09:56)
[2018-11-05] MEDS: ZYLOPRIM PO SCH ×2 (09:56→20:34)
[2018-11-05] MEDS: KLOR-CON PO SCH (09:56)
[2018-11-05] MEDS: LASIX PO SCH ×2 (09:56→20:34)
[2018-11-05] MEDS: ZITHROMAX PO SCH (09:57)
[2018-11-05] MEDS: MBX SOLUTION MT PRN (09:57)
[2018-11-05] MEDS ORDERED: KLOR-CON PO ONE (17:50)
[2018-11-05] MEDS: ZOLOFT PO SCH (20:34)
--- NOTE | 2018-11-06 01:58 | PROGRESS NOTE ---
DATE: 11/05/2018 SUBJECTIVE: The patient has no new complaints. She states overall she is starting to feel a little bit better. She actually did get out of bed today with physical therapy. OBJECTIVE: Vital Signs: Temperature 98.6 degrees, pulse 87, respiratory 20, BP 102/54. General: The patient is a morbidly obese female who is lying in bed this morning using her BiPAP. She is easily awakened. HEENT: Normocephalic. Neck: Supple. Cardiovascular: Regular rate. No murmurs. Chest: Decreased breath sounds bilaterally due to body habitus. No current crackles. No wheezing. Abdomen: Soft and nondistended. Extremities: Moves all extremities, although generalized weakness. ASSESSMENT: 1. Right basilar pneumonia. 2. Congestive heart failure exacerbation. 3. Morbid obesity. 4. Dysuria. 5. Hypothyroidism. 6. Hypokalemia. PLAN: We will increase her Synthroid to 250 due to her TSH being elevated. We will continue Lasix and azithromycin and we will follow. Hopefully she can transition to rehab soon. cc: Robin Kruger MD
[2018-11-06] MEDS: DUONEB (A & A) INH SCH ×6 (03:04→23:10)
[2018-11-06] MEDS: MAXIPIME 2 GM in NS 100 ML IV SCH ×2 (06:00→18:45)
[2018-11-06] MEDS: LOVENOX SUBQ SCH (06:01)
[2018-11-06] MEDS: SYNTHROID PO SCH ×2 (06:01)
[2018-11-06 06:23] LABS: ESTIMATED GFR > 60
[2018-11-06 06:25] LABS: AGAP 9; ALBUMIN 3.5 g/dL (3.5-5.0); ALKALINE PHOSPHATASE 100 U/L (32-104); BUN 17 mg/dL (8-22); CALCIUM 8.6 mg/dL (8.8-10.2); CHLORIDE 89 mmol/L (98-107); COSMO 278; CREATININE 0.7 mg/dL (0.5-0.9); GLUCOSE 105 mg/dL (70-104); GOT 32 U/L (10-30); GPT 27 U/L (10-36); MAGNESIUM 2.2 mg/dL (1.5-2.7); SODIUM 138 mmol/L (136-145); TCO2 41 mmol/L (25-35); TOTAL PROTEIN 7.2 g/dL (6.3-8.3)
[2018-11-06 07:05] LABS: HEMATOCRIT 41.8 % (37.0-47.0); MCH 29.1 PG (27-31); MCHC 28.7 g/dL (33-37); MCV 101.5 FL (81-99); MPV 9.6 FL (7.4-10.4); RBC 4.12 XMIL (4.2-5.4); RDW 13.8 % (11.5-14.5); WBC 11.23 X1000 (4.8-10.8)
[2018-11-06] MEDS: ZYLOPRIM PO SCH ×2 (10:00→21:42)
[2018-11-06] MEDS: DIFLUCAN PO SCH (10:00)
[2018-11-06] MEDS: ZITHROMAX PO SCH (10:00)
[2018-11-06] MEDS: CARAFATE PO SCH (10:00)
[2018-11-06] MEDS: KLOR-CON PO SCH (10:00)
[2018-11-06] MEDS: NEURONTIN PO SCH ×2 (10:00→21:42)
[2018-11-06] MEDS: LASIX PO SCH ×2 (10:00→21:43)
[2018-11-06] MEDS: MBX SOLUTION MT PRN ×2 (11:26→22:30)
--- NOTE | 2018-11-06 18:15 | PROGRESS NOTE ---
DATE: 11/06/2018 SUBJECTIVE: Patient is lying in bed. She is wearing her BiPAP. There is no apparent distress otherwise. Does states that she actually was able to get out of bed yesterday, although did not ambulate any distance. PHYSICAL EXAMINATION: Vital Signs: Temp 98.4, pulse 87, respiratory 18, BP 114/53. General: Patient is a morbidly obese female who currently is her baseline respiratory distress. Pleasant to talk with. HEENT: Normocephalic. Neck: Supple. Cardiovascular: Regular rate. Chest: Decreased breath sounds secondary to body habitus. No crackles. No wheezing. Abdomen: Soft, obese, nondistended. Extremities: Moves all extremities. Trace to 1+ edema. ASSESSMENT: 1. Hypothyroidism. We have increased her Synthroid. We will recheck her TSH. 2. Hypokalemia. Potassium is 3.3, currently is 4.0, has resolved. 3. Leukocytosis. 4. Bibasilar pneumonia. 5. Adult failure to thrive. PLAN: Will continue patient in the hospital. Continue physical therapy, continue Synthroid, BiPAP, and will follow. Hopefully she can transition to rehab soon. cc: Robin Kruger MD
[2018-11-06] MEDS: ZOLOFT PO SCH (21:42)
[2018-11-07] MEDS: DUONEB (A & A) INH SCH ×6 (03:52→23:41)
[2018-11-07] MEDS: MAXIPIME 2 GM in NS 100 ML IV SCH (05:08)
[2018-11-07] MEDS: LOVENOX SUBQ SCH (05:09)
[2018-11-07] MEDS: SYNTHROID PO SCH ×4 (05:09→06:00)
[2018-11-07 07:04] LABS: HEMATOCRIT 43.2 % (37.0-47.0); HEMOGLOBIN 12.1 g/dL (12.0-16.0); MCH 28.4 PG (27-31); MCV 101.4 FL (81-99); MPV 9.6 FL (7.4-10.4); RBC 4.26 XMIL (4.2-5.4); RDW 13.7 % (11.5-14.5); WBC 9.74 X1000 (4.8-10.8)
[2018-11-07] MEDS: OMNICEF PO SCH ×2 (10:09→20:44)
[2018-11-07] MEDS: ZYLOPRIM PO SCH ×2 (10:09→20:45)
[2018-11-07] MEDS: KLOR-CON PO SCH (10:09)
[2018-11-07] MEDS: LASIX PO SCH (10:09)
[2018-11-07] MEDS: DIFLUCAN PO SCH (10:10)
[2018-11-07] MEDS: ZITHROMAX PO SCH (10:10)
[2018-11-07] MEDS: CARAFATE PO SCH (10:10)
[2018-11-07] MEDS: NEURONTIN PO SCH ×2 (10:10→20:45)
[2018-11-07] MEDS: MYCOSTATIN SUSP PO SCH ×4 (10:10→20:44)
[2018-11-07] MEDS: ZOLOFT PO SCH (20:44)
--- NOTE | 2018-11-08 00:51 | PROGRESS NOTE ---
DATE: 11/07/2018 SUBJECTIVE: Patient currently is lying in the bed. She does not have the BiPAP on. She is awake, states that she is feeling okay. PHYSICAL EXAMINATION: Vital Signs: Temperature 97.9 degrees, pulse 71, respiratory 20, BP 115/60. General: Patient is awake, alert, currently in mild respiratory distress. She is an obese female who is pleasant talk with. HEENT: Normocephalic. Neck: Supple. CARDIOVASCULAR: Regular rate. Chest: Clear. Decreased secondary to body habitus. Abdomen: Soft, obese. Extremities: Moves all extremities although generalized weakness. ASSESSMENT: 1. Right basilar pneumonia. 2. Congestive heart failure. 3. Hypothyroidism. TSH is still elevated at 10.1. We had recently increased her Synthroid to 250. We will increase to 300 and we will follow. cc: Robin Kruger MD
[2018-11-08] MEDS: DUONEB (A & A) INH SCH ×5 (03:35→19:33)
[2018-11-08] MEDS: LOVENOX SUBQ SCH (06:20)
[2018-11-08] MEDS: SYNTHROID PO SCH (06:21)
[2018-11-08] MEDS ORDERED: SYNTHROID PO SCH (07:00)
[2018-11-08] MEDS: ZYLOPRIM PO SCH (08:57)
[2018-11-08] MEDS: KLOR-CON PO SCH (08:57)
[2018-11-08] MEDS: LASIX PO SCH ×2 (08:57→17:19)
[2018-11-08] MEDS: CARAFATE PO SCH (08:57)
[2018-11-08] MEDS: MYCOSTATIN SUSP PO SCH ×3 (08:58→17:19)
[2018-11-08] MEDS: NEURONTIN PO SCH (08:58)
[2018-11-08] MEDS: OMNICEF PO SCH (08:58)
--- NOTE | 2018-11-08 16:12 | DISCHARGE SUMMARY ---
ADMISSION DATE: 10/30/2018 DISCHARGE DATE: 11/08/2018 DIAGNOSES: 1. Right basilar pneumonia. 2. Congestive heart failure exacerbation. 3. Hypothyroid. 4. Morbid obesity. 5. Dysuria with 2 negative urine cultures. 6. Acute hypercapnic respiratory failure. DIAGNOSTICS: 1. 10/30/2018 chest x-ray revealed questionable small basilar infiltrates. 2. 10/31/2018 chest x-ray revealed right basilar atelectasis. Chest x-ray 11/04 revealed a small infiltrate in the right lung. No cardiomegaly and the left lung is clear. 3. Echocardiogram revealed an ejection fraction of 55% with normal left ventricular cavity size. No pericardial effusion. Aortic valve leaflets are not well visualized. Mitral valve was normal. Tricuspid valve was normal. Pulmonic valve not visualized. There is no aortic stenosis or regurgitation of the aortic valve. There is trace mitral and tricuspid regurgitation. 4. Urine cultures x2 revealed no growth. HOSPITAL COURSE: Ms. Trent presented to the emergency room with complaints of shortness of breath. She arrived with an O2 saturation of 91% on 6 L. She reported O2 saturations in the 80s at home despite her 6 L or turning her oxygen up. She was found to have right basilar pneumonia for which she was treated with Rocephin and azithromycin and she will be transitioned over to Omnicef on discharge. During the night of her admission her O2 saturations did decline and she was placed on BiPAP and she has had use BiPAP as needed. Her initial TSH was 21, her levothyroxine was increased. She did have a TSH of 16.8 on the 6th and 10.63 on the 10th. She was diuresed and she is -3.8 L. DISCHARGE VITAL SIGNS: Blood pressure is 106/52 with a heart rate of 88, respirations are 18, temperature is 97.8 degrees oral with O2 saturation 96% to 100% on 4 L nasal cannula. Cardiovascular: Regular rate and rhythm. S1 and S2 appreciated. She has no lower extremity edema with peripheral pulses palpable x4 extremities. Pulmonary: Her breath sounds are diminished throughout. Chest rises and falls symmetrically with respiration. Chest wall is nontender to palpation. Gastrointestinal: Abdomen is soft, nontender, nondistended with bowel sounds in all 4 quadrants. DISCHARGE MEDICATIONS: 1. Ventolin inhaler q.4 hours as needed. 2. Allopurinol 200 mg p.o. b.i.d. 3. Lasix 40 mg p.o. b.i.d. 4. Gabapentin 300 mg p.o. b.i.d. 5. Potassium chloride 10 mEq daily. 6. Zoloft 100 mg p.o. at bedtime. 7. Carafate 1 g p.o. daily. 8. Tylenol 650 mg p.o. q.6 hours p.r.n. 9. DuoNeb q.4 hours p.r.n. wheezing. 10. Levothyroxine 300 mcg p.o. daily. She will need a TSH drawn in 3 days and the medical sales representative can dose her Synthroid as needed according to this. She is being discharged to rehab in stable condition. TIME SPENT: Greater than 30 minutes. Dictated by VIVIAN Marshall for Robin Kruger MD This chart was documented by, VIVIAN Marshall and accurately reflects the services performed, treatment plan and medical decisions as attested by the providers signature Robin Kruger MD. cc: VIVIAN Marshall MD [facility]
[2018-11-08 16:31] VITALS: BP 106/59
--- NOTE | 2018-11-09 06:42 | DISCHARGE SUMMARY ---
ADMISSION DATE: 10/30/2018 DISCHARGE DATE: 11/08/2018 ADDENDUM: Patient seen and examined by myself. Full note dictated and discussed with nurse practitioner. Patient was admitted to the hospital, placed on antibiotics for basilar pneumonia and continued to improve. On discharge to rehab, she actually was able to start ambulating some with physical therapy. She will continue antibiotics. Further orders as needed. cc: Robin Kruger MD
== END 2018-11-08 20:00 | DRG 177 ==
LOC: P.ED 01:10 → SUATTDRO 11:05 → P.MEDSURG 11:05
PROVIDERS: ATTEND Family Medicine
CPT/HCPCS: 36415; 51702; 71010; 71045; 80048; 80053; 81001; 82140; 82550; 82805; 82948; 83735; 83880; 84439; 84443; 84481; 84484; 85025; 85027; 87088; 93005; 93306; 94640; 94660; 94761; 94799; 96374; 97110; 97163; 97530; 99285; A9270; C8924; J0456; J0692; J0696; J1650; J1940; Q9957; XXXXX